=== PATIENT | male | born 1945 | race Caucasian/White ===

== ENCOUNTER 2017-06-10 09:01 | Observation (INO) ==
--- NOTE | 2017-06-10 09:25 | Emergency Department Note ---
Disposition Clinical Impression: Chest pain of unknown etiology Disposition: Admitted As Inpatient Time of Disposition: 10:42 Chest Pain HPI - General Chief Complaint: ED Chest Pain Stated Complaint: Chest pain Time Seen by Provider: 06/10/17 09:07 Source: patient Limitations: no limitations Vital Signs Reviewed: Yes Nursing Notes Reviewed: Yes - History of Present Illness HPI Narrative: 72-year-old male complains of chest pressure 3 days. Patient states his pressure is 2/10 left-sided chest that comes on at rest. Patient states it woke him out of sleep at 0130 hrs. this morning. Patient says the chest pressure, goes but seems to be always at rest. Patient's states he has noticed shortness of breath on exertion when he walks [place] which is new for him over the past 3 weeks. Patient denies any MIs in the past does not see a whiting can worker. Patient has a history of hypertension and hyperlipidemia. Severity scale (1-10): 2 - Related Data Home Medications Medication Instructions Recorded Confirmed Omeprazole 20 mg PO DAILY 04/05/16 06/10/17 Pravastatin Sodium [Pravachol] 20 mg PO DAILY 04/05/16 06/10/17 hydroCHLOROthiazide 25 mg PO DAILY 04/05/16 06/10/17 [Hydrochlorothiazide] ALPRAZolam [Xanax 0.5 MG Tablet] 0.5 mg PO DAILY PRN 06/10/17 06/10/17 Allergies Allergy/AdvReac Type Severity Reaction Status Date / Time No Known Allergies Allergy Verified 04/05/16 11:20 All systems ED: reviewed and negative except as stated. Review of Systems: As Per HPI Constitutional: Denies: fever, weakness Eyes: Denies: vision change ENT ED: Denies: congestion Cardiovascular: Reports: chest pain, dyspnea on exertion. Denies: palpitations , orthopnea Respiratory: Reports: cough. Denies: dyspnea, wheezes Gastrointestinal: Denies: abdominal pain, nausea, vomiting, diarrhea Genitourinary: Denies: urgency, dysuria, frequency Musculoskeletal: Denies: back pain, neck pain Chest Pain PMH - Past Medical History Medical history: Reports: GERD, hyperlipidemia Psychiatric history: Reports: anxiety - Social History Smoking Status: Never smoker Alcohol use: Reports: recent Drug use: Reports: none Physical Exam Vital Signs Temperature 98.3 F 06/10/17 09:03 Pulse Rate 87 06/10/17 09:03 Respiratory Rate 20 06/10/17 09:03 Blood Pressure 154/99 06/10/17 09:03 O2 Sat by Pulse Oximetry 98 06/10/17 09:03 Temperature 98.3 F 06/10/17 09:03 Pulse Rate 82 06/10/17 09:11 Respiratory Rate 16 06/10/17 09:11 Blood Pressure 164/98 06/10/17 09:11 O2 Sat by Pulse Oximetry 96 06/10/17 09:15 Oxygen Delivery Oxygen Delivery Room Air 72-year-old male who is alert and oriented 3 and in no acute distress. Patient has normal vital signs except for his blood pressure which is 154/99. Patient afebrile. Patient nontoxic appearing. Heart rate regular rate and rhythm no murmurs rubs or gallops. Sinus rhythm on EKG at 89 beats minute. - General Limitations: no limitations General appearance: alert, in no apparent distress - Head Head exam: atraumatic, normocephalic, normal inspection - Eye Eye exam: Present: normal appearance, PERRL, EOMI - ENT ENT exam: normal exam, normal oropharynx, mucous membranes moist - Neck Neck exam: Present: normal inspection, full ROM, trachea midline - Chest Chest inspection: Present: normal inspection, symmetric chest wall rise - Respiratory Respiratory exam: Present: normal lung sounds bilaterally - Cardiovascular Cardiovascular exam: Present: regular rate, normal rhythm, normal heart sounds - Extremities Exam Extremities exam: Present: normal inspection, full ROM, normal capillary refill. Absent: tenderness, pedal edema, joint swelling, calf tenderness Course Vital Signs Temperature 98.3 F 06/10/17 09:03 Pulse Rate 87 06/10/17 09:03 Respiratory Rate 20 06/10/17 09:03 Blood Pressure 154/99 06/10/17 09:03 O2 Sat by Pulse Oximetry 98 06/10/17 09:03 Temperature 98.1 F 06/11/17 06:36 Pulse Rate 91 06/11/17 06:36 Respiratory Rate 16 06/11/17 06:36 Blood Pressure 114/71 06/11/17 06:36 O2 Sat by Pulse Oximetry 97 06/11/17 06:36 Oxygen Delivery Oxygen Delivery Room Air Chest Pain - MDM Narrative Medical decision making narrative: Chest pressure complaints with concerns for ACS/UT, PE, patient has no pulse discrepancy or chest pain with radiation to his back which makes me think less likely of aortic dissection. Patient maintaining O2 saturations and has no shortness of breath at this time. Patient has no cough or pleuritic chest pain and no sick contacts so currently doubt pneumonia and PE is low on my differential. Heart Score 5 Patient's workup is completely negative with negative troponins. Plan to admit patient for further workup and trending of troponins. Patient understands and agrees to treatment plan for admission. Patient is admitted to medicine by Dr. Sahni the hospitalist at 1035 hrs. - Lab Data Lab results reviewed: Yes I reviewed the patient's lab results. Lab results narrative: Short CBC 06/10/17 Range/Units 09:20 WBC 9.2 (4.3-11.1) K/mcL Hgb 14.2 (12.9-16.9) g/dL Hct 42.3 (37.5-50.1) % Plt Count 263 (140-400) K/mcL Neutrophils # 6.8 (1.6-8.9) K/mcL BMP 06/10/17 Range/Units 09:20 Sodium 133 L (136-145) mEq/L Potassium 4.3 (3.5-4.5) mEq/L Chloride 96 L (98-109) mEq/L Carbon Dioxide 27 (19-29) mEq/L BUN 11 (8-26) mg/dL Creatinine 0.97 (0.72-1.25) mg/dL Glucose 102 H (70-99) mg/dL Calcium 9.6 (8.6-10.8) mg/dL Cardiac Enzymes 06/10/17 Range/Units 09:20 Troponin I 0.01 (0-0.03) ng/mL Result diagrams: 06/11/17 04:13 06/11/17 04:13 Lab Results 06/10/17 06/10/17 06/10/17 Range/Units 09:20 09:20 09:20 WBC 9.2 (4.3-11.1) K/mcL RBC 4.81 (4.19-5.50) M/mcL Hgb 14.2 (12.9-16.9) g/dL Hct 42.3 (37.5-50.1) % MCV 87.9 (83.0-100.0) fL MCH 29.5 (28.0-33.3) pg MCHC 33.6 (31.6-35.5) g/dL RDW 12.2 (11.5-14.5) % Plt Count 263 (140-400) K/mcL MPV 9.3 L (9.4-12.4) fL Immature Gran % 0.4 (0-4) % Seg Neutrophils % 73.6 % Lymphocytes % 16.8 % Monocytes % 7.3 % Eosinophils % 1.2 % Basophils % 0.7 % Neutrophils # 6.8 (1.6-8.9) K/mcL Lymphocytes # 1.5 (0.6-4.6) K/mcL Monocytes # 0.7 (0.0-1.3) K/mcL Eosinophils # 0.1 (0.0-0.6) K/mcL Basophils # 0.1 (0.0-0.2) K/mcL PT 10.2 (9.4-12.1) Seconds INR 1.0 APTT 32.4 (26.0-36.0) Seconds Sodium 133 L (136-145) mEq/L Potassium 4.3 (3.5-4.5) mEq/L Chloride 96 L (98-109) mEq/L Carbon Dioxide 27 (19-29) mEq/L BUN 11 (8-26) mg/dL Creatinine 0.97 (0.72-1.25) mg/dL Est GFR ( Amer) > 60 (> 60) Est GFR (Non-Af Amer) > 60 (> 60) BUN/Creatinine Ratio 11 (6-26) Glucose 102 H (70-99) mg/dL Calculated Osmolality 276 L (280-300) Calcium 9.6 (8.6-10.8) mg/dL Troponin I (0-0.03) ng/mL 06/10/17 06/10/17 Range/Units 09:20 12:01 WBC (4.3-11.1) K/mcL RBC (4.19-5.50) M/mcL Hgb (12.9-16.9) g/dL Hct (37.5-50.1) % MCV (83.0-100.0) fL MCH (28.0-33.3) pg MCHC (31.6-35.5) g/dL RDW (11.5-14.5) % Plt Count (140-400) K/mcL MPV (9.4-12.4) fL Immature Gran % (0-4) % Seg Neutrophils % % Lymphocytes % % Monocytes % % Eosinophils % % Basophils % % Neutrophils # (1.6-8.9) K/mcL Lymphocytes # (0.6-4.6) K/mcL Monocytes # (0.0-1.3) K/mcL Eosinophils # (0.0-0.6) K/mcL Basophils # (0.0-0.2) K/mcL PT (9.4-12.1) Seconds INR APTT (26.0-36.0) Seconds Sodium (136-145) mEq/L Potassium (3.5-4.5) mEq/L Chloride (98-109) mEq/L Carbon Dioxide (19-29) mEq/L BUN (8-26) mg/dL Creatinine (0.72-1.25) mg/dL Est GFR ( Amer) (> 60) Est GFR (Non-Af Amer) (> 60) BUN/Creatinine Ratio (6-26) Glucose (70-99) mg/dL Calculated Osmolality (280-300) Calcium (8.6-10.8) mg/dL Troponin I 0.01 < 0.03 (0-0.03) ng/mL - Radiology Data Radiology results reviewed: Yes I reviewed the patient's radiology results. Chest X-Ray 06/10/17 09:08 IMPRESSION: Negative chest x-ray. No evidence of acute cardiopulmonary disease. D/ / Joni Goode MD / Joni Goode MD Interpreting Provider: Joni Goode MD - EKG Data EKG attestation: Yes I reviewed and interpreted this EKG. EKG results narrative: EKG taken 06/10/2017 at 0909 hrs. shows sinus rhythm at a rate of 89 bpm with no acute ST elevations or depressions name leads. Patient's T waves look a bit peaked. No previous EKG for comparison Heart Score - Score History: Moderately Suspicious EKG: Non Specific repolarisation Disturbance Age: Greater than 65 Risk Factors: 1-2 risk factors Troponin: Less than normal limit HEART Score Total: 5 Attestation Statement - Attestation Attestation: I, Dom Hester, examined this patient and my medical decision-making was reviewed with the DIRECTOR OF COMPLIANCE/PA/Advanced Practice Nurse/Resident Physician. I agree with the documented findings, disposition and treatment plan as described except to the extent set forth below. 72-year-old male presents to the emergency department with concerns of chest pain. Patient states that he has been having increasing dyspnea with exertion over the past week. Patient notes that his chest pain is now coming at rest. Initial troponin negative. EKG does not show evidence of STEMI. Patient will be admitted to the hospital for further care and evaluation of his chest pain.
[2017-06-10 09:27] LABS: Basophils # 0.1 K/mcL (0.0-0.2); Basophils % 0.7 %; Eosinophils # 0.1 K/mcL (0.0-0.6); Eosinophils % 1.2 %; Hematocrit 42.3 % (37.5-50.1); Hemoglobin 14.2 g/dL (12.9-16.9); Immature Granulocytes % 0.4 % (0-4); Lymphocytes # 1.5 K/mcL (0.6-4.6); Lymphocytes % 16.8 %; Mean Corpuscular HGB Conc 33.6 g/dL (31.6-35.5); Mean Corpuscular Hemoglobin 29.5 pg (28.0-33.3); Mean Corpuscular Volume 87.9 fL (83.0-100.0); Mean Platelet Volume 9.3 fL (9.4-12.4); Monocytes # 0.7 K/mcL (0.0-1.3); Monocytes % 7.3 %; Neutrophils # 6.8 K/mcL (1.6-8.9); Platelet Count 263 K/mcL (140-400); Red Blood Count 4.81 M/mcL (4.19-5.50); Red Cell Distribution Width 12.2 % (11.5-14.5); Segmented Neutrophils % 73.6 %
[2017-06-10 09:32] LABS: Prothrombin Time 10.2 Seconds (9.4-12.1)
[2017-06-10 09:35] LABS: Activated Partial Thrombo Time 32.4 Seconds (26.0-36.0)
[2017-06-10 09:39] LABS: BUN/Creatinine Ratio 11 (6-26); Blood Urea Nitrogen 11 mg/dL (8-26); Calcium 9.6 mg/dL (8.6-10.8); Carbon Dioxide 27 mEq/L (19-29); Chloride 96 mEq/L (98-109); Glucose 102 mg/dL (70-99); Osmolality,Calculated 276 (280-300); Potassium 4.3 mEq/L (3.5-4.5); Sodium 133 mEq/L (136-145); eGFR For African Americans > 60 (> 60); eGFR For Non-African Americans > 60 (> 60)
[2017-06-10] MEDS ORDERED: Nitroglycerin 0.4 MG TAB.SUBL SL PRN (09:52)
[2017-06-10] MEDS: Aspirin 81 MG TAB.CHEW PO ONE ×2 (09:56→10:01)
[2017-06-10] MEDS ORDERED: Naloxone 0.4 MG/ML INJ IVP PRN (11:23)
[2017-06-10] MEDS ORDERED: Acetaminophen 325 MG TABLET PO PRN (11:23)
--- NOTE | 2017-06-10 11:34 | Internal Med History&Physical ---
Date of Encounter: 06/16/17 Time of Encounter: 11:31 Assessment and Plan (1) Chest pain of unknown etiology Status: Acute 72/male Background history of hypertension, hyperlipidemia, anxiety. Worsening chest pressure/chest pain along with shortness of breath on minimal exertion. Heart score 4. Plan: Admit as observation: Chest pain rule out ACS. Aspirin 81 mg/metoprolol 12.5 mg only for today/statin. Cardiac diet for now. Nothing by mouth from midnight. Echocardiogram. Cycle troponin. If the troponins are negative, echocardiogram within normal limits then please consider stress test. ( stress test order is not placed) A stress test is positive and please call cardiology. If troponin positive then please call cardiology. Note: I have examined this patient in the emergency room #[id number]. Patient's was at bedside. Plan of care discussed with the patient. Patient and his verbalize understanding. (2) Hypertension Status: Acute Resume home medication. Qualifiers: Hypertension type: essential hypertension Qualified Code(s): I10 - Essential (primary) hypertension (3) Dyslipidemia Status: Acute Resume home medications. (4) DVT prophylaxis Status: Acute SCD Medical decision making: This patient has a moderate to severe risk of worsening in spite of being on appropriate medication/procedures due to underlying complex medical comorbid conditions. Internal Medicine - H&P: HPI Chief complaint: Chest pressure/chest pain Admitted From: Emergency Dept Plans for Post Hospital Care: Home History of present illness: PCP: Nurse practitioner Nell Sotelo/Dr. Dom Abdi. Brief past medical history: Hypertension, hyperlipidemia, anxiety disorder. History of present illness: Patient has a worsening chest pain ongoing for the past 6-8 weeks. Patient noticed that chest pain is gradually progressing and getting worse even at rest. Patient claims that on walking minimal 5-10 steps he is getting a shortness of breath.Patient claims that these symptoms are ongoing but in last 48 hours significantly getting worse and that is the reason he came to emergency room for further evaluation. Patient did not contacted his primary care provider for the same. Patient denies abdominal pain, nausea, vomiting, dizziness or diarrhea. Workup in the emergency room: Basic labs were drawn. They were inconclusive. EKG was within normal limits. His heart score was 4. Reason for admission: Chest pain to rule out acute coronary syndrome. Family history: Noncontributory Past Med Surg Social Fam HX - Past Medical History Medical history: GERD, hyperlipidemia Psychiatric history: anxiety - Social History Smoking Status: Never smoker Smokeless Tobacco Status: No Alcohol use: recent Drug use: none Internal Medicine - H&P: Meds Omeprazole 20 mg PO DAILY 04/05/16 [History] Pravastatin Sodium [Pravachol] 20 mg PO DAILY 04/05/16 [History] hydroCHLOROthiazide [Hydrochlorothiazide] 25 mg PO DAILY 04/05/16 [History] ALPRAZolam [Xanax 0.5 MG Tablet] 0.5 mg PO DAILY PRN 06/10/17 [History] 3 Allergy/AdvReac Type Severity Reaction Status Date / Time No Known Allergies Allergy Verified 04/05/16 11:20 All Systems PM: A 10-system review of systems was performed and is negative for pertinent findings except as documented above in the HPI. - Constitutional Constitutional: no chills, no fever(s), no night sweats - EENT Eyes: no change in vision, no discharge, no pain, no photophobia Ears: no ear discharge, no ear pain, no tinnitus Nose, mouth and throat: no dysphagia, no nasal discharge, no neck pain, no sore throat - Cardiovascular Cardiovascular ROS IM: chest pain, diaphoresis, dyspnea, dyspnea on exertion, palpitations, no lightheadedness, no syncope - Respiratory Respiratory: no cough, no dyspnea, no wheezing, no excessive phlegm production - Gastrointestinal Gastrointestinal: no abdominal pain, no diarrhea, no hematemesis, no hematochezia, no melena, no nausea, no vomiting - Musculoskeletal Musculoskeletal ROS IM: no numbness, no tingling - Integumentary Integumentary IM: no rash, no unusual bruising - Neurological Neurological ROS: no confusion, no convulsions, no focal weakness, no numbness, no tingling, no tremor(s) - Hematologic/Lymphatic Hematologic/Lymphatic: no easy bruising - Constitutional Vitals: Temp Pulse Resp BP Pulse Ox 98.3 F 82 16 164/98 96 06/10/17 09:03 06/10/17 09:11 06/10/17 09:11 06/10/17 09:11 06/10/17 09:15 General appearance: Present: A&O X 3, pleasant, no acute distress, answers questions appropriately - Head Head exam: Present: atraumatic, normocephalic - Eye Eye exam: Present: PERRL, conjuntiva pink, sclera anicteric Pupils: Present: PERRL - Neck Neck exam general surgery: Present: supple, trachea midline. Absent: lymphadenopathy - Respiratory Respiratory exam: Present: CTAB. Absent: accessory muscle use, rales, rhonchi, wheezes - Cardiovascular Cardiovascular exam: Present: RRR, +S1, +S2. Absent: diastolic murmur, gallop, rubs, systolic murmur - GI/Abdominal GI/Abdominal exam: Present: normal bowel sounds, soft, no peritoneal signs. Absent: distended, tenderness - Extremities Exam Extremities exam: Present: warm, radial pulses palpable and symmetrical. Absent : calf tenderness, cyanotic, pedal edema - Neurological Exam Neurological exam: Present: CN II-XII intact, oriented X3, no focal deficits. Absent: pronater drift, facial droop, speech deficit - Skin Skin exam: Present: dry, intact Internal Med - H&P Results - Labs CBC & Chem 7: 06/11/17 04:13 06/11/17 04:13 Labs: Short CBC 06/10/17 Range/Units 09:20 WBC 9.2 (4.3-11.1) K/mcL Hgb 14.2 (12.9-16.9) g/dL Hct 42.3 (37.5-50.1) % Plt Count 263 (140-400) K/mcL Neutrophils # 6.8 (1.6-8.9) K/mcL BMP 06/10/17 09:20 Sodium 133 L Potassium 4.3 Chloride 96 L Carbon Dioxide 27 BUN 11 Creatinine 0.97 Glucose 102 H Calcium 9.6 Cardiac Enzymes 06/10/17 Range/Units 09:20 Troponin I 0.01 (0-0.03) ng/mL - Impressions ITS Impressions Chest X-Ray 06/10/17 09:08 IMPRESSION: Negative chest x-ray. No evidence of acute cardiopulmonary disease. D/ / Joni Goode MD / oJni Goode MD Interpreting Provider: Joni Goode MD
[2017-06-11 04:34] LABS: Basophils # 0.1 K/mcL (0.0-0.2); Basophils % 0.5 %; Eosinophils # 0.2 K/mcL (0.0-0.6); Eosinophils % 2.2 %; Hematocrit 41.1 % (37.5-50.1); Hemoglobin 13.7 g/dL (12.9-16.9); Immature Granulocytes % 0.3 % (0-4); Lymphocytes # 2.8 K/mcL (0.6-4.6); Lymphocytes % 27.2 %; Mean Corpuscular HGB Conc 33.3 g/dL (31.6-35.5); Mean Corpuscular Hemoglobin 29.7 pg (28.0-33.3); Mean Platelet Volume 9.5 fL (9.4-12.4); Monocytes # 0.8 K/mcL (0.0-1.3); Monocytes % 7.7 %; Neutrophils # 6.3 K/mcL (1.6-8.9); Platelet Count 243 K/mcL (140-400); Red Blood Count 4.62 M/mcL (4.19-5.50); Red Cell Distribution Width 12.7 % (11.5-14.5); Segmented Neutrophils % 62.1 %
[2017-06-11 04:38] LABS: Prothrombin Time 11.2 Seconds (9.4-12.1)
[2017-06-11 04:40] LABS: Activated Partial Thrombo Time 30.7 Seconds (26.0-36.0)
[2017-06-11 05:05] LABS: Alanine Aminotransferase 7 Units/L (7-52); Albumin/Globulin Ratio 1.3 (1.1-2.2); Alkaline Phosphatase 86 Units/L (34-104); Aspartate Amino Transferase 13 Units/L (13-39); BUN/Creatinine Ratio 11 (6-26); Bilirubin,Total 0.4 mg/dL (0.3-1.0); Blood Urea Nitrogen 10 mg/dL (8-23); Calcium 9.4 mg/dL (8.6-10.3); Carbon Dioxide 26 mEq/L (23-29); Chloride 100 mEq/L (98-107); Chol/HDL Ratio 3.4 (0-4.9); Cholesterol 145 mg/dL (< 200); Globulin 3.2 g/dL (2.4-3.5); Glucose 110 mg/dL (70-105); HDL Cholesterol 43 mg/dL (40-59); LDL Cholesterol,Calculated 69 mg/dL (0-99); Osmolality,Calculated 278 (280-300); Phosphorous 2.5 mg/dL (2.7-4.5); Sodium 134 mEq/L (136-145); Total Protein 7.2 g/dL (6.4-8.9); Triglycerides 165 mg/dL (< 150); eGFR For African Americans > 60 (> 60); eGFR For Non-African Americans > 60 (> 60)
[2017-06-11 06:40] VITALS: BP 114/71
[2017-06-11] MEDS ORDERED: Aspirin Enteric Coated 81 MG Tablet PO SCH (09:00)
--- NOTE | 2017-06-11 09:03 | Discharge Summary ---
Date of Encounter: 06/11/17 Time of Encounter: 08:55 - Discharge Diagnosis (1) Chest pain of unknown etiology Priority: Primary Status: Acute (2) Hypertension Priority: Secondary Status: Acute Qualifiers: Hypertension type: essential hypertension Qualified Code(s): I10 - Essential (primary) hypertension (3) Dyslipidemia Priority: Secondary Status: Acute - Discharge Medications Home Medications: Omeprazole 20 mg PO DAILY 04/05/16 [History] Pravastatin Sodium [Pravachol] 20 mg PO DAILY 04/05/16 [History] hydroCHLOROthiazide [Hydrochlorothiazide] 25 mg PO DAILY 04/05/16 [History] ALPRAZolam [Xanax 0.5 MG Tablet] 0.5 mg PO DAILY PRN 06/10/17 [History] Allergies/Adverse Reactions: 3 Allergy/AdvReac Type Severity Reaction Status Date / Time No Known Allergies Allergy Verified 04/05/16 11:20 Procedures/tests Complete & Pending: Procedures Performed prior 72 hours Category Date Time Status NM vitaliy perf SPECT multi [NM] Routine Exams 06/11/17 08:51 Ordered SP pharm nuclear stress Stat Y 06/11/17 08:50 Ordered Date of admission: 06/10/17 12:25 Primary care physician: Nell Sotelo CNP - Patient Status Disposition: Home, Self-Care Overall status at discharge: patient is back to baseline - Discharge Instructions Follow Up With: Nell Sotelo CNP [Primary Care Provider] - 06/24/17 9:00 am - Diet and Activity Activity: resume usual activities as tolerated Diet: regular diet Hospital course: Mr. Bowen is a 72 year old male with past medical history of hypertension, hyperlipidemia, and anxiety disorder who presented with worsening chest pain ongoing for the past 6-8 weeks. Patient noticed that chest pain is gradually progressing and getting worse even at rest. Workup in the emergency room included basic labs as well as cardiac enzymes which were all unremarkable. His cardiac enzymes were trended and remained unremarkable. His EKG was not concerning for any ST or T-wave abnormalities. He underwent an echocardiogram as well as a nuclear stress test that was negative nuclear for any ischemic findings. The patient of note does have a history of hiatal hernia and I have advised him to follow-up with his primary care physician and have follow-up with a surgeon in order to get evaluated for possible needs for surgery. He was stable for discharge on 06/11/2017 - Time Spent with Patient Total time spent providing and/or coordinating discharge services: Greater than 30 minutes - Constitutional Vitals: Temp Pulse Resp BP Pulse Ox 98.1 F 91 16 114/71 97 06/11/17 06:36 06/11/17 06:36 06/11/17 06:36 06/11/17 06:36 06/11/17 06:36 General appearance: Present: A&O X 3, pleasant, no acute distress, answers questions appropriately Exam: GEN: NAD CVS: RRR. S1, S2, No m/r/g RESP: CTAB ABD: Soft, NT, ND, +BS EXT: No edema. 2+ DP. No rashes NEURO: Nonfocal
[2017-06-11] MEDS ORDERED: Regadenoson 0.4 MG/5 ML SYRINGE IVP ONE (09:43)
--- NOTE | 2017-06-11 13:20 | Electrocardiograph Report ---
[place] [id number] Test Date: 2017-06-10 Pat Name: Iban Bowen Department: 102 Room: 3A22 Gender: M Environmental Service Aide: Sarah : 1945 Requested By: Kathie Vicente Order Number: [id number] Reading MD: Berlin Gauthier MD Measurements Intervals [place] Rate: 89 P: 92 LA: 138 QRS: 59 QRSD: 92 T: 82 QT: 367 QTc: 414 Interpretive Statements SINUS RHYTHM BASELINE ARTIFACT Electronically Signed On 06-11-2017 13:18:41 EST by Berlin Gauthier MD
== END 2017-06-11 14:08 | disposition home or self-care (01) ==
LOC: 3ANU 09:01 → EMEROO 09:01 → 3ANU 12:39
PROVIDERS: ADMIT Internal Medicine; ATTEND Internal Medicine